=== PATIENT | male | born 1950 | race Caucasian/White ===

== ENCOUNTER 2020-04-16 11:27 | Emergency (ER) | payer BC, MEDICARE, OTHER ==
[~2020-04-16] VITALS: Ht 170.2 cm; Wt 92.3 kg
--- NOTE | 2020-04-16 11:51 | NUR ---
PT HAS BEEN FEELING DIZZY AND LIGHTHEADED FOR THE PAST 2 DAYS. PT STATED THAT HE HAS BEEN EATING AND DRINKING NORMALLY. PT DENIES ANY CP, SOB, BLURRY VISION OR HEADACHE.
[2020-04-16] MEDS ORDERED: ONDANSETRON 2MG/ML, 2ML ONE (12:11)
--- NOTE | 2020-04-16 12:20 | NUR ---
PT VOMITED. ZOFRAN GIVEN PER MAY.
[2020-04-16] MEDS ORDERED: SODIUM CHLORIDE 0.9% 1,000ML IVBOLUS ONE (12:30)
[2020-04-16] MEDS ORDERED: ONDANSETRON 2MG/ML, 2ML IVPush ONE (12:30)
[2020-04-16 12:39] LABS: BASOPHILS % (AUTO) 1 % (0-1); EOSINOPHILS % (AUTO) 4 % (1-7); LYMPHOCYTES % (AUTO) 20 % (22-44); MEAN CORPUSCULAR HEMOGLOBIN 31.8 pg (27.5-34.5); MEAN CORPUSCULAR HGB CONC 34.2 g/dL (33.2-36.2); MEAN PLATELET VOLUME 9.7 fL (7.4-10.4); MONOCYTES % (AUTO) 7 % (2-9); NEUTROPHILS % (AUTO) 68 % (42-75); PLATELET COUNT 145 x10^3/uL (130-400); RED BLOOD COUNT 4.81 x10^6/uL (4.38-5.82)
[2020-04-16 12:49] LABS: ALBUMIN 3.9 g/dL (3.4-5.0); ANION GAP 6 mmol/L (5-15); CHLORIDE 109 mmol/L (98-107)
[2020-04-16 12:51] LABS: MD NO
[2020-04-16 12:55] LABS: ALANINE AMINOTRANSFERASE 68 U/L (12-78); ALKALINE PHOSPHATASE 67 U/L (45-117); BILIRUBIN,TOTAL 0.7 mg/dL (0.2-1.0); CREATININE 1.29 mg/dL (0.7-1.3)
[2020-04-16 13:20] LABS: TROPONIN I < 0.015 ng/mL (0.000-0.045)
[2020-04-16] MEDS ORDERED: NEOSPORIN OINT. PKT 1 PACKET ONE (13:55)
--- NOTE | 2020-04-16 14:00 | NUR ---
PT TO CT
[2020-04-16 15:13] VITALS: BP 136/65
--- NOTE | 2020-04-16 15:14 | NUR ---
PT RESTING COMFORTABLY
== END 2020-04-16 15:52 | disposition home or self-care (01) ==
LOC: ED 13:24
DX: R42 Dizziness and giddiness (principal); R61 Generalized hyperhidrosis; R11.2 Nausea with vomiting, unspecified; I51.7 Cardiomegaly; R94.31 Abnormal electrocardiogram [ECG] [EKG]; R51.9 Headache, unspecified; E11.9 Type 2 diabetes mellitus without complications
CPT/HCPCS: 36415; 70450; 80053; 84484; 85025; 93005; 96361; 96374; 99284; J2405; J7030; 99285